=== PATIENT | male | born 1970 | race Caucasian/White ===

== ENCOUNTER 2016-11-12 20:09 | Emergency (ER) | payer MEDICAID ==
[~2016-11-12] VITALS: Ht 177.8 cm; Wt 88.5 kg
[2016-11-12 20:09] VITALS: BP_SYST 123
[~2016-11-12 20:09] MED LIST: AMOX-426 PO; HYDR-1189 PO; NOR10 PO; SACC250C3 PO; VIS50 PO; WELSR150 PO
[2016-11-12] MEDS ORDERED: ASPIRIN 325 MG TABLET PO ONE (20:15)
[2016-11-12 20:37] LABS: BASOPHILS # (AUTO) 0.2 K/uL (0.0-0.2); BASOPHILS % (AUTO) 1.6 % (0.0-2.0); EOSINOPHILS # (AUTO) 0.1 K/uL (0.0-0.4); EOSINOPHILS % (AUTO) 0.9 % (0.0-4.0); HEMATOCRIT 52.6 % (36-54); HEMOGLOBIN 17.3 g/dL (14.0-18.0); LYMPHOCYTES # (AUTO) 0.7 K/uL (1.0-5.5); LYMPHOCYTES % (AUTO) 5.9 % (20.5-51.5); MEAN CORPUSCULAR HEMOGLOBIN 28 pg (27-31); MEAN CORPUSCULAR HGB CONC 33 % (32-36); MEAN CORPUSCULAR VOLUME 85 fL (79.0-98.0); MONOCYTES % (AUTO) 8.3 % (1.7-9.3); NEUTROPHILS # (AUTO) 10.1 K/uL (1.8-7.7); NEUTROPHILS % (AUTO) 83.3 % (40.0-70.0); PLATELET COUNT (AUTO) 330 K/uL (130-430); RED CELL DISTRIBUTION WIDTH 13.2 % (9.0-15.0); WHITE BLOOD COUNT (AUTO) 12.1 K/uL (4.8-10.8)
[2016-11-12 20:41] LABS: CALCIUM 8.6 mg/dL (8.4-11.0); CREATININE 1.07 mg/dL (0.55-1.30); POTASSIUM 3.3 mmol/L (3.5-5.1)
[2016-11-12 20:43] LABS: INR 1.1 (0.80-1.20); PROTHROMBIN TIME 12.1 SECS (9.5-12.5)
[2016-11-12 20:45] LABS: ALBUMIN 3.8 g/dL (3.4-4.8); TOTAL BILIRUBIN 0.5 mg/dL (0.0-1.0); TOTAL PROTEIN, SERUM 7.7 g/dL (6.4-8.3)
[2016-11-12] MEDS ORDERED: NACL 0.9% 1,000 ML IV ONE (21:00)
[2016-11-12] MEDS ORDERED: ONDANSETRON HCL 4 MG/2 ML VIAL IVP ONE (21:00)
[2016-11-12 22:11] LABS: BILIRUBIN,URINE NEGATIVE (NEGATIVE); BLOOD, URINE NEGATIVE (NEGATIVE); CLARITY/URINE CLEAR (CLEAR); COLOR,URINE YELLOW (YELLOW); GLUCOSE,URINE NEGATIVE (NEGATIVE); KETONES,URINE NEGATIVE (NEGATIVE); LEUKOCYTE ESTERASE ,URINE NEGATIVE (NEGATIVE); NITRITE, URINE NEGATIVE (NEGATIVE); PROTEIN URINE NEGATIVE (NEGATIVE); UROBILINOGEN,URINE 0.2 (0.2-1.0)
[2016-11-12 22:12] VITALS: BP_SYST 123
[2016-11-12 22:32] LABS: BARBITURATE, URINE NEGATIVE (NEG <=200); BENZODIAZEPINE, URINE NEGATIVE (NEG <=150); CANNABINOID, URINE POSITIVE (NEG <=50); COCAINE, URINE NEGATIVE (NEG <=150); METHAMPHETAMINES SCREEN,URINE POSITIVE (NEG <=500); OPIATE, URINE NEGATIVE (NEG <=100); PHENCYCLIDINE SCREEN,URINE NEGATIVE (NEG <=25); UR TRICYCLIC ANTIDEPRESSANTS NEGATIVE (NEG <=300); URINE AMPHETAMINE POSITIVE (NEG <=500); URINE METHADONE NEGATIVE (NEG <=200); URINE OXYCODONE SCREEN NEGATIVE (NEG <=100); URINE PROPOXYPHENE SCREEN NEGATIVE (NEG <=300)
== END 2016-11-12 22:12 | disposition home or self-care (01) ==
LOC: SED 20:09
DX: E86.0 Dehydration (principal); D72.829 Elevated white blood cell count, unspecified; I10 Essential (primary) hypertension; Z86.19 Personal history of other infectious and parasitic diseases
CPT/HCPCS: 36415; 71010; 80053; 80307; 81003; 83735; 84484; 85025; 85610; 85730; 93005; 96374; 99285; J2405; J7030

== ENCOUNTER 2017-12-09 23:58 | Emergency (ER) | payer MEDICAID ==
[~2017-12-09] VITALS: Ht 177.8 cm; Wt 86.2 kg
[2017-12-10] VITALS: BP_SYST 148
--- NOTE | 2017-12-10 | NUR ---
Note blanka in ED - 12/10/17 at 0035 by HELEN Called Poison Control at [phone] and spoke with Per recommendations: Oral inspection, check for stridor, dysphagia, drooling consult GI if burn. Dr. Cornejo notified. Will continue to monitor patient.
--- NOTE | 2017-12-10 | NUR ---
Placed in room 2 . Placed on bus driver/monitor, blood pressure machine and pulse oximeter. To gown for exam. Side rails up. Report given to Brooks PATRICIO.
--- NOTE | 2017-12-10 00:05 | NUR ---
Patient ambulatory to ED a/o x 4 with c/o accidental ingestion of lens cleaner. Patient reports sore throat and head ache following ingestion. States, "I was able to spit most out, but i accidently swallowed some". No evidence of stridor or respiratory distress. Denies CP. -N/V. Patient denies SI or previous suicidal ideation. Will continue to monitor.
--- NOTE | 2017-12-10 00:10 | NUR ---
Called Poison Control at [phone] and spoke with Glen. Per recommendations: Oral inspection, check for stridor, dysphagia, drooling consult GI if burn. Dr. Cornejo notified. Will continue to monitor patient.
--- NOTE | 2017-12-10 00:17 | NUR ---
ED MD Cornejo at bedside for medical evaluation.
--- NOTE | 2017-12-10 01:00 | NUR ---
ED MD Shermanek at bedside reassessing patient.
[2017-12-10 01:09] VITALS: BP_SYST 141
--- NOTE | 2017-12-10 01:09 | NUR ---
Patient given written and verbal discharge instructions and verbalizes understanding. ER MD discussed with patient the results and treatment provided. Patient in stable condition. ID arm band removed. No Rx given. Patient educated on pain management and to follow up with PMD. Pain Scale 0/10. Opportunity for questions provided and answered.
== END 2017-12-10 01:09 | disposition home or self-care (01) ==
LOC: SED 23:58
DX: T55.0X1A Toxic effect of soaps, accidental (unintentional), initial encounter (principal); I10 Essential (primary) hypertension; F17.200 Nicotine dependence, unspecified, uncomplicated; Z88.8 Allergy status to other drugs, medicaments and biological substances; Z90.49 Acquired absence of other specified parts of digestive tract; Y92.89 Other specified places as the place of occurrence of the external cause
CPT/HCPCS: 99281

== ENCOUNTER 2018-04-11 06:19 | Emergency (ER) | payer MEDICAID ==
[~2018-04-11] VITALS: Ht 177.8 cm; Wt 86.2 kg
[2018-04-11 06:32] VITALS: BP_SYST 154
[2018-04-11] MEDS ORDERED: CEPHALEXIN 500 MG CAPSULE PO ONE (06:45)
[2018-04-11] MEDS ORDERED: SULFAMETHOXAZOLE/TRIMETHOPR DS 1 TABLET PO ONE (06:45)
[2018-04-11 07:05] VITALS: BP_SYST 154
== END 2018-04-11 07:05 | disposition home or self-care (01) ==
LOC: SED 06:19
DX: L03.116 Cellulitis of left lower limb (principal); I10 Essential (primary) hypertension; Z86.19 Personal history of other infectious and parasitic diseases; Z79.899 Other long term (current) drug therapy
CPT/HCPCS: 99283

== ENCOUNTER 2018-06-16 17:49 | Emergency (ER) | payer MEDICAID ==
[~2018-06-16] VITALS: Ht 177.8 cm; Wt 86.2 kg
[2018-06-16 17:51] VITALS: BP_SYST 123
[2018-06-16] MEDS ORDERED: CLINDAMYCIN PHOSPHATE 300 MG/2 ML VIAL IM ONE (19:00)
[2018-06-16 19:18] VITALS: BP_SYST 128
== END 2018-06-16 19:18 | disposition home or self-care (01) ==
LOC: SED 17:49
DX: L03.116 Cellulitis of left lower limb (principal); I10 Essential (primary) hypertension; Z86.19 Personal history of other infectious and parasitic diseases; Z79.899 Other long term (current) drug therapy
CPT/HCPCS: 93005; 96372; 99283; J3490

== ENCOUNTER 2018-06-29 05:05 | Emergency (ER) | payer MEDICAID ==
[~2018-06-29] VITALS: Ht 177.8 cm; Wt 86.2 kg
[2018-06-29 06:02] VITALS: BP_SYST 144
[2018-06-29 07:39] LABS: CALCIUM 9.2 mg/dL (8.4-11.0); CREATININE 0.85 mg/dL (0.55-1.30); POTASSIUM 3.3 mmol/L (3.5-5.1)
[2018-06-29 07:44] LABS: ALBUMIN 3.7 g/dL (3.4-4.8); TOTAL BILIRUBIN 0.2 mg/dL (0.0-1.0)
[2018-06-29 07:46] LABS: BASOPHILS # (AUTO) 0.1 K/uL (0.0-0.2); BASOPHILS % (AUTO) 1.1 % (0.0-2.0); EOSINOPHILS # (AUTO) 0.4 K/uL (0.0-0.4); EOSINOPHILS % (AUTO) 3.6 % (0.0-4.0); HEMOGLOBIN 15.5 g/dL (14.0-18.0); LYMPHOCYTES # (AUTO) 1.7 K/uL (1.0-5.5); LYMPHOCYTES % (AUTO) 15.2 % (20.5-51.5); MEAN CORPUSCULAR HEMOGLOBIN 28 pg (27-31); MEAN CORPUSCULAR HGB CONC 32 % (32-36); MEAN CORPUSCULAR VOLUME 88 fL (79.0-98.0); MONOCYTES # (AUTO) 0.7 K/uL (0.0-1.0); MONOCYTES % (AUTO) 6.1 % (1.7-9.3); PLATELET COUNT (AUTO) 433 K/uL (130-430); RED BLOOD CELL COUNT(AUTO) 5.47 MIL/uL (4.2-6.2); RED CELL DISTRIBUTION WIDTH 12.8 % (9.0-15.0); WHITE BLOOD COUNT (AUTO) 10.9 K/uL (4.8-10.8)
[2018-06-29] MEDS ORDERED: AMPICILLIN SODIUM/SULBACTAM NA 1.5 GM in NS 50 ML IV ONE (08:15)
[2018-06-29] MEDS ORDERED: KCL 40 mEq in 100 mL (PREMIX) 100 ML IV ONE (08:15)
[2018-06-29] MEDS ORDERED: AMPICILLIN SODIUM/SULBACTAM NA 1.5 GM VIAL ONE (08:21)
[2018-06-29] MEDS ORDERED: KCL 20 mEq in 100 mL (PREMIX) 100 ML IV ONE (08:24)
[2018-06-29] MEDS ORDERED: POTASSIUM CHLORIDE 20 MEQ TAB.PRT.SR PO ONE (08:45)
[2018-06-29 09:21] VITALS: BP_SYST 144
== END 2018-06-29 09:22 | disposition short-term general hospital (02) ==
LOC: SED 05:05
DX: L03.116 Cellulitis of left lower limb (principal); Z86.19 Personal history of other infectious and parasitic diseases; Z79.899 Other long term (current) drug therapy
CPT/HCPCS: 36415; 80053; 83605; 85025; 87040; 96365; 99285; J0295; J3480

== ENCOUNTER 2019-06-13 05:04 | Observation (INO) | payer MEDICAID ==
[~2019-06-13] VITALS: Ht 177.8 cm; Wt 88.5 kg
[2019-06-13 05:04] VITALS: BP_SYST 150
--- NOTE | 2019-06-13 05:04 | NUR ---
Placed in room 7 . Placed on building construction teacher, blood pressure machine and pulse oximeter. To gown for exam. Side rails up. Report given to SINTIA Sanford.
--- NOTE | 2019-06-13 05:05 | NUR ---
Patient is AAO x 4 and ambulatory c/o chest pain since 10pm last night. Pt states the pain is "a squeezing sensation, different when I have anxiety chest pain." Pain level of 6/10. Pt states he is short of breath and feels nauseous but has not vomited. O2 saturation of 98% on room air and speaking full sentences. Pt also states that he has been coughing for the last week, denies fever. No other injuries/complaints per patient or noted.
--- NOTE | 2019-06-13 05:08 | NUR ---
ER Dr. Rodriguez at bedside examining patient.
[2019-06-13] MEDS ORDERED: ONDANSETRON HCL 4 MG/2 ML VIAL IVP ONE (05:15)
[2019-06-13] MEDS ORDERED: MORPHINE 2 MG/ML INJ. SYRINGE IVP ONE (05:15)
[2019-06-13] MEDS ORDERED: NS 500 ML IV ONE (05:45)
[2019-06-13 05:57] LABS: BASOPHILS # (AUTO) 0.1 K/uL (0.0-0.2); BASOPHILS % (AUTO) 0.8 % (0.0-2.0); EOSINOPHILS # (AUTO) 0.3 K/uL (0.0-0.4); EOSINOPHILS % (AUTO) 2.9 % (0.0-4.0); HEMATOCRIT 50.3 % (36-54); HEMOGLOBIN 17.3 g/dL (14.0-18.0); LYMPHOCYTES # (AUTO) 1.6 K/uL (1.0-5.5); LYMPHOCYTES % (AUTO) 15.8 % (20.5-51.5); MEAN CORPUSCULAR HEMOGLOBIN 30 pg (27-31); MEAN CORPUSCULAR HGB CONC 35 % (32-36); MEAN CORPUSCULAR VOLUME 86 fL (79.0-98.0); MONOCYTES # (AUTO) 0.8 K/uL (0.0-1.0); MONOCYTES % (AUTO) 7.8 % (1.7-9.3); NEUTROPHILS # (AUTO) 7.4 K/uL (1.8-7.7); NEUTROPHILS % (AUTO) 72.7 % (40.0-70.0); PLATELET COUNT (AUTO) 367 K/uL (130-430); RED BLOOD CELL COUNT(AUTO) 5.86 MIL/uL (4.2-6.2); RED CELL DISTRIBUTION WIDTH 13.9 % (9.0-15.0); WHITE BLOOD COUNT (AUTO) 10.1 K/uL (4.8-10.8)
[2019-06-13 06:16] LABS: CALCIUM 8.8 mg/dL (8.4-11.0); CREATININE 0.82 mg/dL (0.55-1.30); POTASSIUM 3.7 mmol/L (3.5-5.1)
[2019-06-13 06:22] LABS: ALBUMIN 3.6 g/dL (3.4-4.8); TOTAL BILIRUBIN 0.3 mg/dL (0.0-1.0)
--- NOTE | 2019-06-13 07:15 | NUR ---
Report given to SINTIA Street. All care endorsed.
--- NOTE | 2019-06-13 07:16 | NUR ---
Report recieved from SINTIA Gupta for continuation of care.
--- NOTE | 2019-06-13 07:30 | NUR ---
Patient states he is ubale to provide urine sample at this time. Dr. Rodriguez is aware.
--- NOTE | 2019-06-13 07:40 | NUR ---
Verbal authorization received from [facility] to admit for observation.
[2019-06-13] MEDS ORDERED: NACL 0.9% 1,000 ML IV ONE (08:00)
[2019-06-13] MEDS ORDERED: cefTRIAXone 1 GM in D5W 50 ML IV ONE (08:15)
--- NOTE | 2019-06-13 08:15 | NUR ---
Medication reconciliation completed with information provided by patient. Any prior medication reconciliation on file was reviewed and corrected.
--- NOTE | 2019-06-13 08:16 | NUR ---
Patient will be admitted to care of Dr. Gutierrez. Admitted to [facility] Obs unit. Waiting for room assignment. Belongings list completed. Complete and up to date summary report printed. SBAR report to be given at bedside with opportunity for questions.
[2019-06-13] MEDS ORDERED: BUPR300T55 PO (08:22)
--- NOTE | 2019-06-13 08:40 | NUR ---
Transfer to [facility]. Licensed nurse present. IV present no signs or symptoms of infiltration. Addendum: 06/13/19 at 0845 by [email or web address] Minor endorsed to SINTIA Pete for continuation of care.
--- NOTE | 2019-06-13 08:42 | NUR ---
ADMISSION NOTE Received patient from ER via anish, received report from Jad PATRICIO. Patient admitted with diagnosis of Chest pain, Bronchitis. Patient oriented to hospital routine, call light, toileting and safety-patient verbalized understanding.
[2019-06-13] MEDS ORDERED: cefTRIAXone 1 GM VIAL ONE (08:44)
--- NOTE | 2019-06-13 08:59 | NUR ---
CONSULT ID BRONCHITIS DEVANTE CLARK [phone] S/W JUANCHO VARGAS
[2019-06-13 09:08] VITALS: BP_SYST 117
[2019-06-13] MEDS ORDERED: FLU VACC QS2019-20 36MOS UP/PF 60 MCG/0.5 ML SYRINGE I.M. PRN (09:30)
--- NOTE | 2019-06-13 10:30 | NUR ---
ASSUMPTION OF CARE: RECEIVED PT A/A/OX4, ENDORSED BY NURSE GIL LAWTON RN, PT IS RESTING, DX: ALTERATION IN COMFORT, R/T CHEST PAIN, BRONCHITIS, VSS, NO C/O PAIN AT THIS TIME, ORIENTED TO UNIT, CALL LIGHT PLACED WITHIN REACH, WILL CONT' TO MONITOR AND ASSESS.
--- NOTE | 2019-06-13 13:00 | NUR ---
NURSES NOTES: PT REMAINS STABLE, NO SIGNIFICANT CHANGES IN CONDITION NOTED, NEEDS MET, CALL LIGHT PLACED WITHIN REACH, WILL CONT' TO MONITOR AND ASSESS.
[2019-06-13] MEDS ORDERED: ONDANSETRON HCL 4 MG/2 ML VIAL IVP PRN (13:15)
[2019-06-13] MEDS ORDERED: LORazepam 2 MG/ML VIAL IVP PRN (13:15)
[2019-06-13] MEDS: LEVOFLOXACIN 500 MG/D5W 100 ML IV SCH (16:46)
[2019-06-13] MEDS: D5/0.45 NS 1,000 ML IV SCH ×2 (16:49→23:09)
--- NOTE | 2019-06-13 17:00 | NUR ---
NURSES NOTES: PT REMAINS STABLE, NO C/O CP, NO S/S OF DISTRESS, WILL CONT' TO MONITOR AND ASSESS.
[2019-06-13] MEDS: HYDROcodone/ACETAMIN 5-325 MG TAB (NORCO/ VICODIN) PO PRN (17:41)
--- NOTE | 2019-06-13 19:00 | NUR ---
END OF SHIFT: PT ASLEEP, CALL LIGHT WITHIN REACH, WILL ENDORSE TO DATA MODELER NURSE.
[2019-06-13] MEDS ORDERED: AMOXICILLIN/CLAVULANATE POTASSIUM 875 MG TABLET PO SCH (21:00)
[2019-06-13] MEDS: buPROPion HCL 150 MG TABLET.SA PO SCH (21:00)
[2019-06-13] MEDS ORDERED: buPROPion HCL 150 MG XL TAB PO SCH (21:00)
[2019-06-13] MEDS: LACTOBACILLUS RHAMNOSUS GG 1 CAP CAPSULE PO SCH (23:25)
--- NOTE | 2019-06-14 00:01 | NUR ---
pt recieved awake alert and oriented . no c/o pain . pt on d51/2ns tko . pt ambulates to the bathroom . vital sign stable . pt is doing very well .
--- NOTE | 2019-06-14 04:00 | NUR ---
pt slept very well . still sleeping very well . will continue to monitor pt for comfort.
[2019-06-14 06:37] LABS: CALCIUM 8.5 mg/dL (8.4-11.0); CREATININE 0.78 mg/dL (0.55-1.30); POTASSIUM 3.9 mmol/L (3.5-5.1)
[2019-06-14 06:38] LABS: BASOPHILS # (AUTO) 0.1 K/uL (0.0-0.2); BASOPHILS % (AUTO) 0.5 % (0.0-2.0); EOSINOPHILS # (AUTO) 0.3 K/uL (0.0-0.4); EOSINOPHILS % (AUTO) 3.2 % (0.0-4.0); HEMATOCRIT 47.8 % (36-54); HEMOGLOBIN 16.1 g/dL (14.0-18.0); LYMPHOCYTES # (AUTO) 1.7 K/uL (1.0-5.5); LYMPHOCYTES % (AUTO) 16.5 % (20.5-51.5); MEAN CORPUSCULAR HEMOGLOBIN 29 pg (27-31); MEAN CORPUSCULAR HGB CONC 34 % (32-36); MEAN CORPUSCULAR VOLUME 87 fL (79.0-98.0); MONOCYTES % (AUTO) 9.8 % (1.7-9.3); NEUTROPHILS # (AUTO) 7.4 K/uL (1.8-7.7); PLATELET COUNT (AUTO) 370 K/uL (130-430); RED BLOOD CELL COUNT(AUTO) 5.49 MIL/uL (4.2-6.2); WHITE BLOOD COUNT (AUTO) 10.5 K/uL (4.8-10.8)
[2019-06-14 08:00] VITALS: BP_SYST 139
--- NOTE | 2019-06-14 08:00 | NUR ---
ASSUMPTION OF CARE: RECEIVED PT A/A/OX4, PT IS RESTING, DX: ALTERATION IN COMFORT, R/T CHEST PAIN, BRONCHITIS, VSS, NO C/O PAIN AT THIS TIME, ORIENTED TO UNIT, CALL LIGHT PLACED WITHIN REACH, WILL CONT' TO MONITOR AND ASSESS.
--- NOTE | 2019-06-14 08:29 | NUR ---
PAGED PAGED BARBRA OCHOA AT [phone] SPOKE WITH LIANA.
[2019-06-14] MEDS ORDERED: amLODIPine BESYLATE 10 MG TABLET PO SCH (09:00)
--- NOTE | 2019-06-14 09:00 | NUR ---
CASHIER MANAGER: MORNING MEDS GIVEN, PER ORDERED BY Simba, TOLERATED WELL, WILL CONT' TO MONITOR AND ASSESS.
[2019-06-14] MEDS: LACTOBACILLUS RHAMNOSUS GG 1 CAP CAPSULE PO SCH (09:22)
[2019-06-14] MEDS: HYDROcodone/ACETAMIN 5-325 MG TAB (NORCO/ VICODIN) PO PRN ×2 (09:22→15:20)
[2019-06-14 10:07] LABS: ERYTHROCYTE SEDIMENTATION RATE 2 MM/HR (0-15)
[2019-06-14] MEDS: D5/0.45 NS 1,000 ML IV SCH (11:08)
[2019-06-14] MEDS: buPROPion HCL 150 MG TABLET.SA PO SCH (11:09)
[2019-06-14 12:00] VITALS: BP_SYST 120
--- NOTE | 2019-06-14 12:00 | NUR ---
NURSES NOTES: PT REMAINS STABLE, NO SIGNIFICANT CHANGES IN CONDITION NOTED, KEPT NPO FOR ORDERED US OF ABD, NEEDS MET, CALL LIGHT PLACED WITHIN REACH, WILL CONT' TO MONITOR AND ASSESS.
[2019-06-14 12:41] LABS: C-REACTIVE PROTEIN QUANT 0.4 mg/dL (0-0.5)
[2019-06-14] MEDS: LEVOFLOXACIN 500 MG/D5W 100 ML IV SCH (14:49)
--- NOTE | 2019-06-14 16:00 | NUR ---
RADIOLOGY: US ABD COMPLETED, PT REMAINS STABLE, TOLERATING WELL, WILL CONT' TO MONITOR AND ASSESS.
[2019-06-14] MEDS ORDERED: VIS50 PO (17:32)
[2019-06-14] MEDS ORDERED: LEVO500T89 PO (17:32)
[2019-06-14 18:07] VITALS: BP_SYST 120
--- NOTE | 2019-06-14 18:50 | NUR ---
DISCHARGE: PT HAS ORDER FOR DISCHARGE TO HOME, INSTRUCTIONS GIVEN WITH PRESCRIPTION AND DISCHARGE FOLLOW-UP CARE WITH PCP, VERBALIZES UNDERSTANDING AGREES TO ARRANGE NEXT APPT WITHIN 1 WEEK WITH PCP, IV DISCONTINUED, PRESSURE DRSG APPLIED TOLERATED WELL, FAMILY AT BEDSIDE TO TRANSPORT HOME, WILL ACCOMPANY TO PARKING LOT.
== END 2019-06-14 19:00 | disposition home or self-care (01) ==
LOC: SED 05:04 → SMU 08:14
PROVIDERS: ADMIT Preventive Medicine Preventive Medicine/Occupational Environmental Medicine; ATTEND Preventive Medicine Preventive Medicine/Occupational Environmental Medicine
DX: R07.89 Other chest pain (principal); R06.02 Shortness of breath; R11.0 Nausea; E87.2 Acidosis; R73.9 Hyperglycemia, unspecified; R05 Cough; R74.0 Nonspecific elevation of levels of transaminase and lactic acid dehydrogenase [LDH]; F15.10 Other stimulant abuse, uncomplicated; F41.9 Anxiety disorder, unspecified; F17.200 Nicotine dependence, unspecified, uncomplicated
CPT/HCPCS: 36415 ×2; 71045 ×2; 76700; 80048; 80053; 82550; 83605; 83880; 84484; 85025 ×2; 85379; 85651; 86140; 87040; 93005; 96365; 96366 ×2; 96367; 96375; 99285; G0378 ×2; J0696; J1956 ×2; J2270; J2405; J7030; J7060; 96361

== ENCOUNTER 2020-02-24 03:17 | Emergency (ER) | payer MEDICAID ==
[~2020-02-24] VITALS: Ht 177.8 cm; Wt 88.5 kg
[~2020-02-24 03:17] MED LIST changes: -AMOX-426 PO; +LEVO500T89 PO
[2020-02-24 03:30] VITALS: BP_SYST 145
--- NOTE | 2020-02-24 03:36 | NUR ---
Patient to ER bed 03 to gown for evaluation. Side rails up. Report given to SINTIA Kirk.
--- NOTE | 2020-02-24 03:37 | NUR ---
Pt brought in by self. Pt awake, alert, oriented x4. Pt ambulates with steady Gait. Pt states he has had 6/10 Bilateral Flank Pain x3 days. Pt Denies Nausea, vomiting, diarrhea. Pt states he also has had scant urine approx upon start of flank pain. Pt claims to have had unprotected sex approx 3 weeks ago and is also concerned about the possibility of STD's. Pt states that he took magnesium citrate and had 3 bowel movements since. Pt denies any chest pain, nausea, shortness of breath, any other medical complaint at this time. Pt resting in ED bed, no acute distress.
--- NOTE | 2020-02-24 03:38 | NUR ---
ER at bedside examining patient.
[2020-02-24] MEDS ORDERED: BUPR75TA8 (03:44)
[2020-02-24] MEDS ORDERED: BUPR300T55 PO (03:44)
--- NOTE | 2020-02-24 04:03 | NUR ---
patient unable to give urine sample at this time.
[2020-02-24 04:25] LABS: BASOPHILS # (AUTO) 0.1 K/uL (0.0-0.2); BASOPHILS % (AUTO) 0.9 % (0.0-2.0); EOSINOPHILS # (AUTO) 0.4 K/uL (0.0-0.4); EOSINOPHILS % (AUTO) 3.5 % (0.0-4.0); HEMATOCRIT 50.9 % (36-54); HEMOGLOBIN 16.5 g/dL (14.0-18.0); LYMPHOCYTES # (AUTO) 2.1 K/uL (1.0-5.5); MEAN CORPUSCULAR HEMOGLOBIN 28 pg (27-31); MEAN CORPUSCULAR HGB CONC 32 % (32-36); MEAN CORPUSCULAR VOLUME 88 fL (79.0-98.0); MONOCYTES # (AUTO) 0.9 K/uL (0.0-1.0); MONOCYTES % (AUTO) 8.1 % (1.7-9.3); NEUTROPHILS # (AUTO) 8.1 K/uL (1.8-7.7); NEUTROPHILS % (AUTO) 69.5 % (40.0-70.0); PLATELET COUNT (AUTO) 337 K/uL (130-430); RED CELL DISTRIBUTION WIDTH 14.3 % (9.0-15.0); WHITE BLOOD COUNT (AUTO) 11.6 K/uL (4.8-10.8)
[2020-02-24 04:28] LABS: CALCIUM 8.9 mg/dL (8.4-11.0); CREATININE 0.87 mg/dL (0.55-1.30); POTASSIUM 3.6 mmol/L (3.5-5.1)
[2020-02-24 04:33] LABS: ALBUMIN 3.4 g/dL (3.4-4.8); TOTAL BILIRUBIN 0.4 mg/dL (0.0-1.0)
[2020-02-24] MEDS ORDERED: AZITHROMYCIN 250 MG TABLET PO ONE (05:00)
[2020-02-24] MEDS ORDERED: cefTRIAXone 250 MG VIAL IM ONE (05:00)
[2020-02-24] MEDS ORDERED: PENICILLIN G BENZATHINE 1.2 MMU/2 ML SYR IM ONE (05:00)
--- NOTE | 2020-02-24 05:17 | NUR ---
medications adminstered per MD order. pt tolerated well.
--- NOTE | 2020-02-24 05:30 | NUR ---
patient refused to give urine sample. aware.
--- NOTE | 2020-02-24 05:48 | NUR ---
Patient given written and verbal discharge instructions and verbalizes understanding. ER MD discussed with patient the results and treatment provided. Patient in stable condition. ID arm band removed. NO Rx given. Patient educated on pain management and to follow up with PMD. Pain Scale 2/10. Opportunity for questions provided and answered. Medication side effect fact sheet provided.
[2020-02-24 05:49] VITALS: BP_SYST 139
== END 2020-02-24 05:48 | disposition home or self-care (01) ==
LOC: SED 03:17
DX: A57 Chancroid (principal); I10 Essential (primary) hypertension; R10.9 Unspecified abdominal pain; F15.90 Other stimulant use, unspecified, uncomplicated; Z72.89 Other problems related to lifestyle; Z86.19 Personal history of other infectious and parasitic diseases
CPT/HCPCS: 36415; 80053; 85025; 86592; 96372; 99284; J0561; J0696; Q0144

== ENCOUNTER 2020-03-04 22:14 | Emergency (ER) | payer MEDICAID ==
[~2020-03-04] VITALS: Ht 177.8 cm; Wt 90.7 kg
[~2020-03-04 22:14] MED LIST changes: +BUPR300T55 PO; -HYDR-1189 PO; -LEVO500T89 PO; -NOR10 PO; -SACC250C3 PO; -VIS50 PO; -WELSR150 PO
[2020-03-04 22:20] VITALS: BP_SYST 147
[2020-03-04 23:45] LABS: BILIRUBIN,URINE NEGATIVE (NEGATIVE); BLOOD, URINE NEGATIVE (NEGATIVE); CLARITY/URINE CLEAR (CLEAR); COLOR,URINE YELLOW (YELLOW); GLUCOSE,URINE NEGATIVE (NEGATIVE); KETONES,URINE NEGATIVE (NEGATIVE); LEUKOCYTE ESTERASE ,URINE NEGATIVE (NEGATIVE); NITRITE, URINE NEGATIVE (NEGATIVE); PROTEIN URINE NEGATIVE (NEGATIVE)
[2020-03-05] MEDS ORDERED: NACL 0.9% 1,000 ML IV ONE (01:08)
[2020-03-05 01:41] LABS: BASOPHILS # (AUTO) 0.1 K/uL (0.0-0.2); BASOPHILS % (AUTO) 0.6 % (0.0-2.0); EOSINOPHILS # (AUTO) 0.4 K/uL (0.0-0.4); EOSINOPHILS % (AUTO) 3.7 % (0.0-4.0); HEMOGLOBIN 14.5 g/dL (14.0-18.0); LYMPHOCYTES % (AUTO) 20.9 % (20.5-51.5); MEAN CORPUSCULAR HEMOGLOBIN 30 pg (27-31); MEAN CORPUSCULAR HGB CONC 34 % (32-36); MEAN CORPUSCULAR VOLUME 89 fL (79.0-98.0); MONOCYTES # (AUTO) 0.8 K/uL (0.0-1.0); MONOCYTES % (AUTO) 8.4 % (1.7-9.3); NEUTROPHILS # (AUTO) 6.4 K/uL (1.8-7.7); NEUTROPHILS % (AUTO) 66.4 % (40.0-70.0); PLATELET COUNT (AUTO) 320 K/uL (130-430); RED BLOOD CELL COUNT(AUTO) 4.86 MIL/uL (4.2-6.2); RED CELL DISTRIBUTION WIDTH 13.5 % (9.0-15.0); WHITE BLOOD COUNT (AUTO) 9.6 K/uL (4.8-10.8)
[2020-03-05 02:08] LABS: CALCIUM 8.4 mg/dL (8.4-11.0); POTASSIUM 3.4 mmol/L (3.5-5.1)
[2020-03-05 02:12] LABS: ALBUMIN 3.3 g/dL (3.4-4.8); TOTAL BILIRUBIN 0.3 mg/dL (0.0-1.0)
[2020-03-05 02:13] VITALS: BP_SYST 134
== END 2020-03-05 03:15 | disposition left against medical advice (07) ==
LOC: SED 22:14
DX: R30.0 Dysuria (principal); R10.9 Unspecified abdominal pain; I10 Essential (primary) hypertension; F41.9 Anxiety disorder, unspecified; F17.200 Nicotine dependence, unspecified, uncomplicated
CPT/HCPCS: 36415; 80053; 81003; 85025; 96360; 99283; J7030

== ENCOUNTER 2021-05-24 00:03 | Emergency (ER) | payer MEDICAID ==
[~2021-05-24] VITALS: Ht 177.8 cm; Wt 90.7 kg
[2021-05-24 00:17] VITALS: BP_SYST 147
--- NOTE | 2021-05-24 01:50 | NUR ---
Patient to ER bed 5 to gown for evaluation. Side rails up. Report given to self.
[2021-05-24] MEDS ORDERED: IBUP-1969 PO (03:20)
--- NOTE | 2021-05-24 03:39 | NUR ---
Patient given written and verbal discharge instructions and verbalizes understanding. ER MD discussed with patient the results and treatment provided. Patient in stable condition. ID arm band removed. Rx of ibuprofen given. Patient educated on pain management and to follow up with PMD. Pain Scale 3. Opportunity for questions provided and answered. Medication side effect fact sheet provided.
[2021-05-24 03:40] VITALS: BP_SYST 139
== END 2021-05-24 03:40 | disposition home or self-care (01) ==
LOC: SED 00:03
DX: S00.432A Contusion of left ear, initial encounter (principal); S00.412A Abrasion of left ear, initial encounter; M75.22 Bicipital tendinitis, left shoulder; Z79.899 Other long term (current) drug therapy; W22.8XXA Striking against or struck by other objects, initial encounter; Y93.89 Activity, other specified; Y92.89 Other specified places as the place of occurrence of the external cause; Y99.8 Other external cause status
CPT/HCPCS: 73030; 99283

== ENCOUNTER 2021-11-05 19:54 | Emergency (ER) | payer MEDICAID ==
[~2021-11-05] VITALS: Ht 177.8 cm; Wt 92.5 kg
[~2021-11-05 19:54] MED LIST changes: +IBUP-1969 PO
[2021-11-05 19:57] VITALS: BP_SYST 149
--- NOTE | 2021-11-05 20:06 | NUR ---
51 YR OLD AOX4, AMBULATORY WITH COMPLAINT OF RIGHT PINKY SPIDER BITE ABOUT 1 HOUR AGO. PT REPORT ITCHY SWELLING OF TONGUE. PT SUSPECTS IT MAY BE A BLACK SPIDER, AND REPORTS RIGHT ARM NUMBNESS, JOINT STIFFNESS AND TINGLING SENSATION OF RIGHT ARM.
[2021-11-05] MEDS ORDERED: MORPHINE 4 MG INJ. 4 MG/ML VIAL IVP ONE (20:45)
[2021-11-05] MEDS ORDERED: ONDANSETRON HCL 4 MG/2 ML VIAL IVP ONE (20:45)
[2021-11-05] MEDS ORDERED: CALCIUM CHLORIDE 1 GM/10 ML DISP.SYRIN (14 mEq Ca++/SYR) IVP ONE (20:45)
--- NOTE | 2021-11-05 20:50 | NUR ---
IV START AT [facility] G20 INSERTED WITH GOOD BLOOD RETURN, IV MEDS GIVEN MORPHINE 4 MG, ZOFRAN 4 MG AND CACL IVP SLOWLY.
[2021-11-05] MEDS ORDERED: IBUP-1971 PO (21:29)
[2021-11-05] MEDS ORDERED: HYDR-3917 PO (21:29)
[2021-11-05 22:39] VITALS: BP_SYST 145
--- NOTE | 2021-11-05 22:43 | NUR ---
Patient given written and verbal discharge instructions and verbalizes understanding. PIO RODRIGUEZ MD discussed with patient the results and treatment provided. Patient in stable condition. ID arm band removed. IV catheter removed intact and dressing applied, no active bleeding. Rx of given. Patient educated on pain management and to follow up with PMD. Pain Scale . Opportunity for questions provided and answered. Medication side effect fact sheet provided.
--- NOTE | 2021-11-05 22:43 | NUR ---
2353 S/B DR RODRIGUEZ AWAITING FOR D/C
== END 2021-11-05 22:39 | disposition home or self-care (01) ==
LOC: SED 19:54
DX: T63.311A Toxic effect of venom of black widow spider, accidental (unintentional), initial encounter (principal); I10 Essential (primary) hypertension; Z79.899 Other long term (current) drug therapy; Y92.89 Other specified places as the place of occurrence of the external cause
CPT/HCPCS: 96374; 96375; 99285; J2270; J2405

== ENCOUNTER 2022-01-22 02:10 | Emergency (ER) | payer MEDICAID ==
[~2022-01-22] VITALS: Ht 177.8 cm; Wt 97.5 kg
[~2022-01-22 02:10] MED LIST changes: +HYDR-3917 PO; +IBUP-1971 PO
[2022-01-22 02:14] VITALS: BP_SYST 130
--- NOTE | 2022-01-22 02:19 | NUR ---
PATIENT C/O CHEST PAIN, LEFT ARM PAIN, SOB, AND JAW PAIN X 3 HOURS
[2022-01-22 03:40] LABS: BASOPHILS # (AUTO) 0.1 K/uL (0.0-0.2); BASOPHILS % (AUTO) 0.5 % (0.0-2.0); EOSINOPHILS # (AUTO) 0.5 K/uL (0.0-0.4); EOSINOPHILS % (AUTO) 4.4 % (0.0-4.0); HEMATOCRIT 42.8 % (36-54); HEMOGLOBIN 14.6 g/dL (14.0-18.0); LYMPHOCYTES # (AUTO) 2.6 K/uL (1.0-5.5); LYMPHOCYTES % (AUTO) 24.6 % (20.5-51.5); MEAN CORPUSCULAR HEMOGLOBIN 29 pg (27-31); MEAN CORPUSCULAR HGB CONC 34 % (32-36); MEAN CORPUSCULAR VOLUME 85 fL (79.0-98.0); MONOCYTES # (AUTO) 0.9 K/uL (0.0-1.0); MONOCYTES % (AUTO) 8.9 % (1.7-9.3); NEUTROPHILS # (AUTO) 6.6 K/uL (1.8-7.7); NEUTROPHILS % (AUTO) 61.6 % (40.0-70.0); PLATELET COUNT (AUTO) 310 K/uL (130-430); RED BLOOD CELL COUNT(AUTO) 5.03 MIL/uL (4.2-6.2); RED CELL DISTRIBUTION WIDTH 13.7 % (9.0-15.0); WHITE BLOOD COUNT (AUTO) 10.6 K/uL (4.8-10.8)
[2022-01-22 03:44] LABS: ANION GAP 6 (5-15); CALCIUM 8.9 mg/dL (8.4-11.0); CHLORIDE 103 mmol/L (98-107); CREATININE 1.02 mg/dL (0.55-1.30); GLUCOSE 135 mg/dL (70-99); POTASSIUM 3.8 mmol/L (3.5-5.1); SODIUM SERUM 139 mmol/L (136-145); UREA NITROGEN, BLOOD 19 mg/dL (8-21)
[2022-01-22 03:55] LABS: ALANINE AMINOTRANSFERASE 99 U/L (12-78); ALBUMIN 3.5 g/dL (3.4-4.8); ASPARTATE AMINOTRANSFERASE 84 U/L (10-37); TOTAL BILIRUBIN 0.5 mg/dL (0.0-1.0)
[2022-01-22 04:02] LABS: GFR AFRICAN AMERICAN 98 mL/min (>90)
--- NOTE | 2022-01-22 04:45 | NUR ---
CALLED TO ROOM, NO ANSWER
--- NOTE | 2022-01-22 05:00 | NUR ---
CALLED TO ROOM PATIENT, NO ANSWER
--- NOTE | 2022-01-22 05:16 | NUR ---
THIRD CALL, NO RESPONSE. PATIENT LEFT WITHOUT BEING SEEN.
== END 2022-01-22 05:16 | disposition left against medical advice (07) ==
LOC: SED 02:10
DX: R07.9 Chest pain, unspecified (principal); M79.602 Pain in left arm; R06.02 Shortness of breath; Z53.21 Procedure and treatment not carried out due to patient leaving prior to being seen by health care provider
CPT/HCPCS: 36415; 71045; 80053; 83880; 84484; 85025; 93005; 99285

== ENCOUNTER 2022-03-30 21:58 | Emergency (ER) | payer MEDICAID ==
[~2022-03-30] VITALS: Ht 177.8 cm; Wt 95.3 kg
[2022-03-30 21:58] VITALS: BP_SYST 154
--- NOTE | 2022-03-30 21:58 | NUR ---
Patient to ER tent for evaluation.
--- NOTE | 2022-03-30 22:02 | NUR ---
Patient brought in accompanied by significant other complaining of cough x7 days. Patient also reports that he has something growing in the back of his throat. Patient has history of GERD. No shortness of breath noted. Patient speaking full sentences. Patient denies any pain at this time.
--- NOTE | 2022-03-30 22:10 | NUR ---
ER at bedside examining patient.
[2022-03-30] MEDS ORDERED: DOXY100C5 PO ×3 (22:31→23:03)
--- NOTE | 2022-03-30 23:02 | NUR ---
Patient given written and verbal discharge instructions and verbalizes understanding. ER MD discussed with patient the results and treatment provided. Patient in stable condition. ID arm band removed. Rx of doxycline given. Patient educated on pain management and to follow up with PMD. Pain Scale 0/10 Opportunity for questions provided and answered. Medication side effect fact sheet provided.
[2022-03-30 23:07] VITALS: BP_SYST 132
== END 2022-03-30 23:07 | disposition home or self-care (01) ==
LOC: SED 21:58
DX: R05.9 Cough, unspecified (principal); R07.9 Chest pain, unspecified; F17.210 Nicotine dependence, cigarettes, uncomplicated; Z79.899 Other long term (current) drug therapy; Z20.822 Contact with and (suspected) exposure to COVID-19
CPT/HCPCS: 36415; 99283

== ENCOUNTER 2022-08-02 03:03 | Emergency (ER) | payer MEDICAID ==
[~2022-08-02] VITALS: Ht 177.8 cm; Wt 95.3 kg
[~2022-08-02 03:03] MED LIST changes: +DOXY100C5 PO
[2022-08-02 03:20] VITALS: BP_SYST 143
[2022-08-02 04:46] LABS: BASOPHILS # (AUTO) 0.1 K/uL (0.0-0.2); BASOPHILS % (AUTO) 0.6 % (0.0-2.0); EOSINOPHILS # (AUTO) 0.2 K/uL (0.0-0.4); EOSINOPHILS % (AUTO) 2.3 % (0.0-4.0); HEMATOCRIT 46.6 % (36-54); HEMOGLOBIN 15.7 g/dL (14.0-18.0); LYMPHOCYTES # (AUTO) 2.2 K/uL (1.0-5.5); LYMPHOCYTES % (AUTO) 21.5 % (20.5-51.5); MEAN CORPUSCULAR HEMOGLOBIN 29 pg (27-31); MEAN CORPUSCULAR HGB CONC 34 % (32-36); MEAN CORPUSCULAR VOLUME 86 fL (79.0-98.0); MONOCYTES # (AUTO) 0.9 K/uL (0.0-1.0); MONOCYTES % (AUTO) 8.7 % (1.7-9.3); NEUTROPHILS # (AUTO) 6.7 K/uL (1.8-7.7); NEUTROPHILS % (AUTO) 66.9 % (40.0-70.0); PLATELET COUNT (AUTO) 332 K/uL (130-430); RED BLOOD CELL COUNT(AUTO) 5.45 MIL/uL (4.2-6.2); RED CELL DISTRIBUTION WIDTH 13.9 % (9.0-15.0)
[2022-08-02 04:57] LABS: CALCIUM 9.1 mg/dL (8.4-11.0); CREATININE 0.86 mg/dL (0.55-1.30)
[2022-08-02 05:03] LABS: ALBUMIN 3.5 g/dL (3.4-4.8); TOTAL BILIRUBIN 0.4 mg/dL (0.0-1.0)
[2022-08-02 05:04] LABS: PROTHROMBIN TIME 10.5 SECS (9.5-12.5)
[2022-08-02] MEDS ORDERED: LOPE2CAP PO (05:19)
[2022-08-02] MEDS ORDERED: SIME80TA15 PO (05:19)
[2022-08-02] MEDS ORDERED: ONDA-8 TL (05:20)
[2022-08-02 05:43] VITALS: BP_SYST 143
== END 2022-08-02 05:43 | disposition home or self-care (01) ==
LOC: SED 03:03
DX: R14.0 Abdominal distension (gaseous) (principal); K76.0 Fatty (change of) liver, not elsewhere classified; R19.5 Other fecal abnormalities; R91.1 Solitary pulmonary nodule; I10 Essential (primary) hypertension; R11.0 Nausea; F15.10 Other stimulant abuse, uncomplicated; Z87.891 Personal history of nicotine dependence; Z79.899 Other long term (current) drug therapy; Z20.822 Contact with and (suspected) exposure to COVID-19
CPT/HCPCS: 36415; 76376; 80053; 82140; 83605; 83690; 85025; 85610-TC; 85730-TC; 87040; 99284

== ENCOUNTER 2022-08-05 14:01 | Emergency (ER) | payer MEDICAID ==
[~2022-08-05] VITALS: Ht 177.8 cm; Wt 95.3 kg
[~2022-08-05 14:01] MED LIST changes: +LOPE2CAP PO; +ONDA-8 TL; +SIME80TA15 PO
--- NOTE | 2022-08-05 14:20 | NUR ---
Ricardo moscoso in ED - 08/05/22 at 1452 by [email or web address] PIO DEUTSCH AT BEDSIDE EXAMINING PT.
[2022-08-05 14:22] VITALS: BP_SYST 136
--- NOTE | 2022-08-05 14:28 | NUR ---
Placed in room 04 . Placed on residential monitor, blood pressure machine and pulse oximeter. To gown for exam. Side rails up. Report given to SINTIA PEDERSEN.
--- NOTE | 2022-08-05 14:30 | NUR ---
PIO DEUTSCH AT BEDSIDE EXAMINING PT.
--- NOTE | 2022-08-05 14:33 | NUR ---
PT BIB SELF FROM HOME WITH C/O FLU LIKE SYMPTOMS AND URGENCY. PT STATES HE WAS DIAGNOSED WITH DIVERTICULITIS ONE WEEK AGO AND HAS HAD FLU LIKE SYMPTOMS WELL. PT IS CURRENTLY COUGHING UP DARK GREEN/YELLOW MUCUS. PT IS AAX04, VS STABLE, NAD NOTED, BREATHING EVEN AND UNLABORED ON RA, PT DENIES N/V/D, PT ON PROMOTIONS EXECUTIVE SHOW NSR. PENDING MD HAMILTON AND ORDERS.
[2022-08-05 15:14] LABS: BASOPHILS # (AUTO) 0.1 K/uL (0.0-0.2); BASOPHILS % (AUTO) 0.4 % (0.0-2.0); EOSINOPHILS # (AUTO) 0.3 K/uL (0.0-0.4); EOSINOPHILS % (AUTO) 1.7 % (0.0-4.0); HEMOGLOBIN 14.8 g/dL (14.0-18.0); LYMPHOCYTES # (AUTO) 1.2 K/uL (1.0-5.5); LYMPHOCYTES % (AUTO) 7.6 % (20.5-51.5); MEAN CORPUSCULAR HEMOGLOBIN 28 pg (27-31); MEAN CORPUSCULAR HGB CONC 33 % (32-36); MEAN CORPUSCULAR VOLUME 86 fL (79.0-98.0); MONOCYTES # (AUTO) 1.2 K/uL (0.0-1.0); MONOCYTES % (AUTO) 7.9 % (1.7-9.3); NEUTROPHILS % (AUTO) 82.4 % (40.0-70.0); PLATELET COUNT (AUTO) 342 K/uL (130-430); RED BLOOD CELL COUNT(AUTO) 5.22 MIL/uL (4.2-6.2); WHITE BLOOD COUNT (AUTO) 15.7 K/uL (4.8-10.8)
[2022-08-05 15:19] LABS: ANION GAP 8 (5-15); CALCIUM 8.7 mg/dL (8.4-11.0); CHLORIDE 102 mmol/L (98-107); CREATININE 0.84 mg/dL (0.55-1.30); GLUCOSE 162 mg/dL (70-99); UREA NITROGEN, BLOOD 12 mg/dL (8-21)
[2022-08-05 15:23] LABS: ALANINE AMINOTRANSFERASE 38 U/L (12-78); ALBUMIN 3.3 g/dL (3.4-4.8); AMYLASE 31 U/L (0-100); ASPARTATE AMINOTRANSFERASE 20 U/L (10-37); C-REACTIVE PROTEIN QUANT 7.3 mg/dL (0-0.5); GFR AFRICAN AMERICAN 122 mL/min (>90); LACTATE DEHYDROGENASE 146 U/L (85-227); LIPASE 60 U/L (73-393)
[2022-08-05 15:38] LABS: ACETONE, SERUM NEGATIVE (NEGATIVE)
[2022-08-05] MEDS ORDERED: HYDR-3917 PO (17:43)
[2022-08-05] MEDS ORDERED: IBUP-1971 PO (17:43)
[2022-08-05 18:35] VITALS: BP_SYST 140
--- NOTE | 2022-08-05 18:35 | NUR ---
PT MEDICALLY CLEARED FOR D/C. D/C INSTRUCTIONS GIVEN TO PT. P;T TO FOLLOWUOP WITH PCP WITHIN 1-3 DAYS AND TO RETURN TO ED FOR WROSENING S/S. PT VERBALIZED UNDERSTANDING. PT IS AAOX4. NAD, WRISTBAND REMOVED. PT AMBULATORY WITH STEADY GATE. PT LEFT ED WITH ALL BELONGINGS.
== END 2022-08-05 18:45 | disposition home or self-care (01) ==
LOC: SED 14:01
DX: R10.32 Left lower quadrant pain (principal); M79.674 Pain in right toe(s); R05.9 Cough, unspecified; I10 Essential (primary) hypertension; Z79.899 Other long term (current) drug therapy
CPT/HCPCS: 99285; 74177; 71045; 80053; 82009; 82150; 83615; 83690; 85025; 86140; 36415; 76376; 83605; Q9967

== ENCOUNTER 2022-08-11 11:17 | Emergency (ER) | payer MEDICAID ==
[~2022-08-11] VITALS: Ht 177.8 cm; Wt 95.3 kg
[2022-08-11 11:30] VITALS: BP_SYST 158
[2022-08-11] MEDS ORDERED: MAG HYDROX/AL HYDROX/SIMETH 30 ML, DICYCLOMINE HCL 20 MG, LIDOCAINE VISCOUS 2% 15ML (PO... PO ONE ×3 (12:00)
[2022-08-11 12:26] LABS: BASOPHILS # (AUTO) 0.1 K/uL (0.0-0.2); BASOPHILS % (AUTO) 0.7 % (0.0-2.0); EOSINOPHILS # (AUTO) 0.3 K/uL (0.0-0.4); EOSINOPHILS % (AUTO) 3.7 % (0.0-4.0); HEMATOCRIT 46.8 % (36-54); HEMOGLOBIN 15.4 g/dL (14.0-18.0); LYMPHOCYTES % (AUTO) 21.3 % (20.5-51.5); MEAN CORPUSCULAR HEMOGLOBIN 28 pg (27-31); MEAN CORPUSCULAR HGB CONC 33 % (32-36); MEAN CORPUSCULAR VOLUME 85 fL (79.0-98.0); MONOCYTES # (AUTO) 0.8 K/uL (0.0-1.0); NEUTROPHILS # (AUTO) 6.1 K/uL (1.8-7.7); NEUTROPHILS % (AUTO) 65.3 % (40.0-70.0); PLATELET COUNT (AUTO) 390 K/uL (130-430); RED BLOOD CELL COUNT(AUTO) 5.51 MIL/uL (4.2-6.2); RED CELL DISTRIBUTION WIDTH 13.7 % (9.0-15.0); WHITE BLOOD COUNT (AUTO) 9.3 K/uL (4.8-10.8)
[2022-08-11 12:35] LABS: ANION GAP 14 (5-15); CALCIUM 9.2 mg/dL (8.4-11.0); CHLORIDE 101 mmol/L (98-107); CREATININE 0.92 mg/dL (0.55-1.30); GFR AFRICAN AMERICAN 110 mL/min (>90); GLUCOSE 112 mg/dL (70-99); UREA NITROGEN, BLOOD 21 mg/dL (8-21)
[2022-08-11 12:42] LABS: ALANINE AMINOTRANSFERASE 42 U/L (12-78); ALBUMIN 3.8 g/dL (3.4-4.8); ASPARTATE AMINOTRANSFERASE 29 U/L (10-37); LIPASE 85 U/L (73-393); TOTAL BILIRUBIN 0.9 mg/dL (0.0-1.0)
[2022-08-11] MEDS ORDERED: OMEP40CA20 PO (13:32)
[2022-08-11] MEDS ORDERED: ONDA8TAB60 PO (13:32)
[2022-08-11 13:47] VITALS: BP_SYST 149
== END 2022-08-11 13:54 | disposition home or self-care (01) ==
LOC: SED 11:17
DX: R10.13 Epigastric pain (principal); R11.0 Nausea; R07.9 Chest pain, unspecified; I10 Essential (primary) hypertension; F15.10 Other stimulant abuse, uncomplicated; Z79.899 Other long term (current) drug therapy
CPT/HCPCS: 99285; 74176; 80053; 83690; 85025; 84484; 36415; 93005; 76376; J2001

== ENCOUNTER 2023-04-01 04:44 | Inpatient (IN) | payer MEDICAID ==
[~2023-04-01] VITALS: Ht 177.8 cm; Wt 95.3 kg
[~2023-04-01 04:44] MED LIST changes: +OMEP40CA20 PO; +ONDA8TAB60 PO
[2023-04-01 04:56] VITALS: BP_SYST 148; PULSE 84; RESP 18; TEMP 98.3; O2SAT 97
[2023-04-01] MEDS ORDERED: ASPIRIN 325 MG TABLET PO ONE (05:30)
[2023-04-01] MEDS ORDERED: ASPIRIN 81 MG TABLET(ECOTRIN) PO ONE (05:45)
[2023-04-01 05:49] LABS: BASOPHILS # (AUTO) 0.1 K/uL (0.0-0.2); BASOPHILS % (AUTO) 0.6 % (0.0-2.0); EOSINOPHILS # (AUTO) 0.3 K/uL (0.0-0.4); EOSINOPHILS % (AUTO) 2.1 % (0.0-4.0); HEMATOCRIT 44.5 % (36-54); HEMOGLOBIN 14.4 g/dL (14.0-18.0); LYMPHOCYTES # (AUTO) 2.2 K/uL (1.0-5.5); LYMPHOCYTES % (AUTO) 18.2 % (20.5-51.5); MEAN CORPUSCULAR HEMOGLOBIN 27 pg (27-31); MEAN CORPUSCULAR HGB CONC 32 % (32-36); MEAN CORPUSCULAR VOLUME 85 fL (79.0-98.0); MONOCYTES % (AUTO) 8.1 % (1.7-9.3); NEUTROPHILS # (AUTO) 8.6 K/uL (1.8-7.7); PLATELET COUNT (AUTO) 330 K/uL (130-430); RED BLOOD CELL COUNT(AUTO) 5.25 MIL/uL (4.2-6.2); RED CELL DISTRIBUTION WIDTH 14.1 % (9.0-15.0); WHITE BLOOD COUNT (AUTO) 12.2 K/uL (4.8-10.8)
[2023-04-01 06:05] LABS: ANION GAP 8 (5-15); CALCIUM 8.2 mg/dL (8.4-11.0); CARBON DIOXIDE 25 mmol/L (23-29); CHLORIDE 103 mmol/L (98-107); CREATININE 0.71 mg/dL (0.55-1.30); GFR AFRICAN AMERICAN 149 mL/min (>90); GLUCOSE 128 mg/dL (74-106); POTASSIUM 3.2 mmol/L (3.5-5.1); SODIUM SERUM 136 mmol/L (136-145); UREA NITROGEN, BLOOD 14 mg/dL (8-21)
[2023-04-01 06:08] LABS: GFR NON AFRICAN-AMERICAN 123 mL/min (>90)
[2023-04-01 06:12] LABS: ALANINE AMINOTRANSFERASE 45 U/L (12-78); ALBUMIN 3.5 g/dL (3.4-4.8); ASPARTATE AMINOTRANSFERASE 37 U/L (10-37); LIPASE 93 U/L (73-393); TOTAL BILIRUBIN 0.3 mg/dL (0.0-1.0); TOTAL PROTEIN, SERUM 6.8 g/dL (6.4-8.3)
[2023-04-01] MEDS ORDERED: POTASSIUM CHLORIDE 20 MEQ TAB.PRT.SR PO ONE (06:30)
[2023-04-01] MEDS ORDERED: NITROGLYCERIN 1 INCH (GM) OINT. TP ONE (06:30)
[2023-04-01] MEDS ORDERED: ATENOLOL 50 MG TABLET (TENORMIN) PO ONE (07:15)
[2023-04-01] MEDS ORDERED: POTASSIUM CHLORIDE 20 MEQ TAB.PRT.SR PO PRN (08:30)
[2023-04-01] MEDS ORDERED: ONDANSETRON HCL 4 MG/2 ML VIAL IVP PRN (08:30)
[2023-04-01] MEDS ORDERED: NACL 0.9% 1,000 ML IV SCH (08:30)
[2023-04-01] MEDS ORDERED: MUPIROCIN 2% TOPICAL OINTMENT 22 GM NS PRN (08:30)
[2023-04-01] MEDS ORDERED: ZOLPIDEM TARTRATE 5 MG TABLET PO PRN (08:30)
[2023-04-01] MEDS ORDERED: ACETAMINOPHEN 325 MG TABLET PO PRN ×2 (08:30→09:15)
[2023-04-01] MEDS ORDERED: DEXTROSE 50% JECT 50 ML DISP.SYRIN IVP PRN (08:30)
[2023-04-01] MEDS ORDERED: MAGNESIUM SULFATE 50 ML IV PRN (08:30)
[2023-04-01] MEDS ORDERED: LORazepam 2 MG/ML VIAL IVP PRN (08:30)
[2023-04-01] MEDS ORDERED: DOCUSATE SODIUM 100 MG CAPSULE PO PRN (08:30)
[2023-04-01] MEDS ORDERED: INSULIN LISPRO SLIDING SCALE 100 UNITS/ML, 3 ML VIAL (humaLOG) SUBCUT PRN (08:30)
[2023-04-01] MEDS ORDERED: METOPROLOL TARTRATE 25 MG TABLET PO SCH (09:00)
[2023-04-01] MEDS ORDERED: HEPARIN SODIUM,PORCINE 5,000 UNITS/ML VIAL SUBCUT SCH (09:00)
[2023-04-01] MEDS ORDERED: ASPIRIN 81 MG TABLET(ECOTRIN) PO SCH (09:00)
[2023-04-01 09:18] LABS: BARBITURATE, URINE NEGATIVE (NEG <=200)
[2023-04-01 09:19] LABS: BENZODIAZEPINE, URINE NEGATIVE (NEG <=150); CANNABINOID, URINE NEGATIVE (NEG <=50); COCAINE, URINE NEGATIVE (NEG <=150); METHAMPHETAMINES SCREEN,URINE POSITIVE (NEG <=500); OPIATE, URINE NEGATIVE (NEG <=100); PHENCYCLIDINE SCREEN,URINE NEGATIVE (NEG <=25); URINE AMPHETAMINE POSITIVE (NEG <=500); URINE METHADONE NEGATIVE (NEG <=200); URINE OXYCODONE SCREEN NEGATIVE (NEG <=100); URINE PROPOXYPHENE SCREEN NEGATIVE (NEG <=300)
[2023-04-01 09:20] LABS: UR TRICYCLIC ANTIDEPRESSANTS NEGATIVE (NEG <=300)
[2023-04-01 11:46] VITALS: BP_SYST 150; PULSE 69; RESP 18; TEMP 97.9; O2SAT 96
[2023-04-01 13:13] VITALS: BP_SYST 150; PULSE 69; RESP 18; TEMP 97.9; O2SAT 96
[2023-04-01 16:00] VITALS: BP_SYST 140; PULSE 66; RESP 18; TEMP 97.1; O2SAT 96
[2023-04-01] MEDS ORDERED: buPROPion HCL 150 MG XL TAB PO SCH (21:00)
== END 2023-04-01 17:45 | disposition left against medical advice (07) | DRG 198 ==
LOC: SED 04:44 → STU 08:22
PROVIDERS: ADMIT General Practice; ATTEND General Practice
DX: I25.10 Atherosclerotic heart disease of native coronary artery without angina pectoris (principal); E11.9 Type 2 diabetes mellitus without complications; E78.5 Hyperlipidemia, unspecified; F10.10 Alcohol abuse, uncomplicated; I10 Essential (primary) hypertension; F17.210 Nicotine dependence, cigarettes, uncomplicated; F32.A Depression, unspecified; F14.10 Cocaine abuse, uncomplicated; Y90.9 Presence of alcohol in blood, level not specified; F15.10 Other stimulant abuse, uncomplicated; F12.10 Cannabis abuse, uncomplicated; Z53.29 Procedure and treatment not carried out because of patient's decision for other reasons; Z91.199 Patient's noncompliance with other medical treatment and regimen due to unspecified reason; Z81.8 Family history of other mental and behavioral disorders; Z63.4 Disappearance and death of family member
CPT/HCPCS: 36415; 71045; 80053; 80307; 82962; 83037; 83690; 83880; 84484; 85025; 93005; 99285; G0378; J1644; J7030

== ENCOUNTER 2023-06-23 05:56 | Inpatient (IN) | payer MEDICAID ==
[~2023-06-23] VITALS: Ht 177.8 cm; Wt 96.6 kg
[2023-06-23 06:05] VITALS: BP_SYST 156; PULSE 96; RESP 22; TEMP 96.1; O2SAT 98
[2023-06-23] MEDS ORDERED: ASPIRIN 81 MG TAB.CHEW PO ONE (06:30)
[2023-06-23 06:43] LABS: BASOPHILS # (AUTO) 0.1 K/uL (0.0-0.2); BASOPHILS % (AUTO) 0.5 % (0.0-2.0); EOSINOPHILS # (AUTO) 0.4 K/uL (0.0-0.4); EOSINOPHILS % (AUTO) 2.6 % (0.0-4.0); HEMATOCRIT 44.5 % (36-54); HEMOGLOBIN 14.4 g/dL (14.0-18.0); LYMPHOCYTES # (AUTO) 2.3 K/uL (1.0-5.5); LYMPHOCYTES % (AUTO) 16.4 % (20.5-51.5); MEAN CORPUSCULAR HEMOGLOBIN 27 pg (27-31); MEAN CORPUSCULAR HGB CONC 32 % (32-36); MEAN CORPUSCULAR VOLUME 84 fL (79.0-98.0); MONOCYTES # (AUTO) 1.1 K/uL (0.0-1.0); MONOCYTES % (AUTO) 7.7 % (1.7-9.3); NEUTROPHILS # (AUTO) 10.2 K/uL (1.8-7.7); NEUTROPHILS % (AUTO) 72.8 % (40.0-70.0); PLATELET COUNT (AUTO) 372 K/uL (130-430); RED CELL DISTRIBUTION WIDTH 13.9 % (9.0-15.0)
[2023-06-23 06:50] LABS: ANION GAP 10 (5-15); CALCIUM 8.9 mg/dL (8.4-11.0); CARBON DIOXIDE 26 mmol/L (23-29); CHLORIDE 104 mmol/L (98-107); CREATININE 0.88 mg/dL (0.55-1.30); GFR AFRICAN AMERICAN 116 mL/min (>90); GFR NON AFRICAN-AMERICAN 96 mL/min (>90); GLUCOSE 127 mg/dL (74-106); POTASSIUM 3.4 mmol/L (3.5-5.1); SODIUM SERUM 140 mmol/L (136-145); UREA NITROGEN, BLOOD 17 mg/dL (8-21)
[2023-06-23] MEDS ORDERED: MAG-AL HYDROX/SIMETH 30 ML UDC PO ONE (07:00)
[2023-06-23] MEDS ORDERED: HYDROcodone/ACETAMIN 5-325 MG TAB (NORCO/ VICODIN) PO PRN ×2 (15:15→15:45)
[2023-06-23] MEDS ORDERED: LORazepam 2 MG/ML VIAL IVP PRN (15:15)
[2023-06-23] MEDS ORDERED: ACETAMINOPHEN 325 MG TABLET PO PRN ×2 (15:15→15:45)
[2023-06-23] MEDS ORDERED: NALOXONE HCL 0.4 MG/ML AMP (NARCAN) IVP PRN ×2 (15:15)
[2023-06-23] MEDS ORDERED: ONDANSETRON HCL 4 MG/2 ML VIAL IVP PRN (15:15)
[2023-06-23 20:51] VITALS: BP_SYST 136; PULSE 68; RESP 18; TEMP 98.6; O2SAT 97
[2023-06-23] MEDS: NORMAL SALINE 5 ML DISP.SYRIN IVF SCH (21:27)
[2023-06-23 21:40] VITALS: BP_SYST 136; PULSE 68; RESP 20; TEMP 98.6; O2SAT 97
[2023-06-24 05:35] LABS: BASOPHILS # (AUTO) 0.1 K/uL (0.0-0.2); BASOPHILS % (AUTO) 0.7 % (0.0-2.0); EOSINOPHILS # (AUTO) 0.4 K/uL (0.0-0.4); EOSINOPHILS % (AUTO) 3.8 % (0.0-4.0); HEMATOCRIT 44.3 % (36-54); HEMOGLOBIN 14.5 g/dL (14.0-18.0); LYMPHOCYTES % (AUTO) 19.4 % (20.5-51.5); MEAN CORPUSCULAR HEMOGLOBIN 28 pg (27-31); MEAN CORPUSCULAR HGB CONC 33 % (32-36); MEAN CORPUSCULAR VOLUME 85 fL (79.0-98.0); MONOCYTES # (AUTO) 0.9 K/uL (0.0-1.0); MONOCYTES % (AUTO) 8.9 % (1.7-9.3); NEUTROPHILS # (AUTO) 7.1 K/uL (1.8-7.7); NEUTROPHILS % (AUTO) 67.2 % (40.0-70.0); PLATELET COUNT (AUTO) 361 K/uL (130-430); RED BLOOD CELL COUNT(AUTO) 5.25 MIL/uL (4.2-6.2); RED CELL DISTRIBUTION WIDTH 14.1 % (9.0-15.0); WHITE BLOOD COUNT (AUTO) 10.5 K/uL (4.8-10.8)
[2023-06-24 06:33] LABS: ALBUMIN 3.1 g/dL (3.4-4.8); CALCIUM 8.8 mg/dL (8.4-11.0); CREATININE 0.72 mg/dL (0.55-1.30); POTASSIUM 3.9 mmol/L (3.5-5.1); TOTAL BILIRUBIN 0.2 mg/dL (0.0-1.0); TOTAL PROTEIN, SERUM 6.6 g/dL (6.4-8.3)
[2023-06-24 08:00] VITALS: BP_SYST 149; PULSE 68; RESP 16; TEMP 98; O2SAT 96
[2023-06-24] MEDS ORDERED: ASPIRIN 81 MG TAB.CHEW PO SCH (09:00)
[2023-06-24] MEDS ORDERED: METOPROLOL SUCCINATE 25 MG TAB.SR.24H (TOPROL XL) PO SCH (09:00)
[2023-06-24] MEDS: NORMAL SALINE 5 ML DISP.SYRIN IVF SCH (09:25)
[2023-06-24 10:45] VITALS: O2SAT 96
[2023-06-24] MEDS ORDERED: ISOSORBIDE MONONITRATE 30 MG TAB.ER.24H PO ONE (12:30)
[2023-06-24 14:13] VITALS: BP_SYST 116; PULSE 54; RESP 18; TEMP 97.4; O2SAT 97
[2023-06-25] MEDS ORDERED: ISOSORBIDE MONONITRATE 30 MG TAB.ER.24H PO SCH (09:00)
== END 2023-06-24 14:41 | disposition home or self-care (01) | DRG 198 ==
LOC: SED 05:56 → STU 12:09
PROVIDERS: ADMIT Preventive Medicine Preventive Medicine/Occupational Environmental Medicine; ATTEND Specialist
DX: R07.89 Other chest pain (principal); I25.10 Atherosclerotic heart disease of native coronary artery without angina pectoris; R65.11 Systemic inflammatory response syndrome (SIRS) of non-infectious origin with acute organ dysfunction; B19.20 Unspecified viral hepatitis C without hepatic coma; E78.5 Hyperlipidemia, unspecified; G89.4 Chronic pain syndrome; F10.90 Alcohol use, unspecified, uncomplicated; F15.10 Other stimulant abuse, uncomplicated; K21.9 Gastro-esophageal reflux disease without esophagitis; Y90.9 Presence of alcohol in blood, level not specified; I10 Essential (primary) hypertension; Z87.891 Personal history of nicotine dependence; Z79.899 Other long term (current) drug therapy; Z79.82 Long term (current) use of aspirin; Z63.4 Disappearance and death of family member; Z79.1 Long term (current) use of non-steroidal anti-inflammatories (NSAID); Z63.5 Disruption of family by separation and divorce
CPT/HCPCS: 36415; 71045; 80048; 80053; 83880; 84484; 85025; 93005; 93306; 96374; 99285; G0378; J2405

== ENCOUNTER 2023-10-30 20:26 | Emergency (ER) | payer MEDICAID ==
[~2023-10-30] VITALS: Ht 177.8 cm; Wt 95.3 kg
[2023-10-30 20:43] VITALS: BP_SYST 143; PULSE 83; RESP 20; TEMP 97.3; O2SAT 95
[2023-10-30] MEDS ORDERED: SULF1TAB48 PO (21:15)
[2023-10-30 21:45] VITALS: BP_SYST 143; PULSE 83; RESP 20; TEMP 97.3; O2SAT 95
== END 2023-10-30 21:45 | disposition home or self-care (01) ==
LOC: SED 20:26
DX: L03.031 Cellulitis of right toe (principal); I10 Essential (primary) hypertension; Z79.899 Other long term (current) drug therapy
CPT/HCPCS: 99283

== ENCOUNTER 2023-11-04 05:37 | Emergency (ER) | payer MEDICAID ==
[~2023-11-04] VITALS: Ht 177.8 cm; Wt 95.3 kg
[~2023-11-04 05:37] MED LIST changes: -BUPR300T55 PO; -DOXY100C5 PO; -HYDR-3917 PO; -IBUP-1969 PO; -IBUP-1971 PO; -LOPE2CAP PO; -OMEP40CA20 PO; -ONDA-8 TL; -ONDA8TAB60 PO; -SIME80TA15 PO; +SULF1TAB48 PO
[2023-11-04 05:55] VITALS: BP_SYST 153; PULSE 94; RESP 18; TEMP 98.6
[2023-11-04] MEDS ORDERED: GUAI5LIQ13 PO (06:31)
[2023-11-04] MEDS ORDERED: ACET-2634 PO (06:31)
[2023-11-04] MEDS ORDERED: P-EP-92 PO (06:31)
[2023-11-04] MEDS ORDERED: AZIT-93 PO (06:31)
== END 2023-11-04 06:42 | disposition home or self-care (01) ==
LOC: SED 05:37
DX: J18.9 Pneumonia, unspecified organism (principal); R05.9 Cough, unspecified; R51.9 Headache, unspecified; R50.9 Fever, unspecified; I10 Essential (primary) hypertension; Z79.899 Other long term (current) drug therapy; Z20.822 Contact with and (suspected) exposure to COVID-19
CPT/HCPCS: 36415; 71045; 99284

== ENCOUNTER 2023-11-18 01:42 | Emergency (ER) | payer MEDICAID ==
[~2023-11-18] VITALS: Ht 177.8 cm; Wt 95.3 kg
[~2023-11-18 01:42] MED LIST changes: +ACET-2634 PO; +AZIT-93 PO; +GUAI5LIQ13 PO; +P-EP-92 PO
[2023-11-18 01:45] VITALS: BP_SYST 131; PULSE 99; RESP 20; TEMP 97.6; O2SAT 97
[2023-11-18] MEDS ORDERED: ALBMDI INH (02:24)
[2023-11-18 02:30] VITALS: BP_SYST 128; PULSE 94; RESP 20; TEMP 97.8; O2SAT 98
== END 2023-11-18 02:30 | disposition home or self-care (01) ==
LOC: SED 01:42
DX: J06.9 Acute upper respiratory infection, unspecified (principal); B97.89 Other viral agents as the cause of diseases classified elsewhere; R09.89 Other specified symptoms and signs involving the circulatory and respiratory systems; I10 Essential (primary) hypertension; Z79.899 Other long term (current) drug therapy; Z79.2 Long term (current) use of antibiotics
CPT/HCPCS: 71045; 93005; 99283

== ENCOUNTER 2024-03-06 02:00 | Inpatient (IN) | payer MEDICAID ==
[~2024-03-06] VITALS: Ht 177.8 cm; Wt 77.6 kg
[~2024-03-06 02:00] MED LIST changes: +ALBMDI INH
[2024-03-06 02:10] VITALS: BP_SYST 128; PULSE 89; RESP 18; TEMP 97.7; O2SAT 98
[2024-03-06] MEDS: NACL 0.9% 1,000 ML IV ONE (02:58)
[2024-03-06] MEDS: INSULIN REGULAR, HUMAN 10 UNITS/0.1 ML, 3 ML VIAL IVP ONE (03:59)
[2024-03-06 04:11] LABS: BASOPHILS % (AUTO) 0.4 % (0.0-2.0); EOSINOPHILS # (AUTO) 0.2 K/uL (0.0-0.4); EOSINOPHILS % (AUTO) 1.6 % (0.0-4.0); HEMATOCRIT 54.8 % (36-54); HEMOGLOBIN 17.9 g/dL (14.0-18.0); LYMPHOCYTES # (AUTO) 1.4 K/uL (1.0-5.5); LYMPHOCYTES % (AUTO) 13.5 % (20.5-51.5); MEAN CORPUSCULAR HEMOGLOBIN 29 pg (27-31); MEAN CORPUSCULAR HGB CONC 33 % (32-36); MEAN CORPUSCULAR VOLUME 90 fL (79.0-98.0); MONOCYTES # (AUTO) 0.7 K/uL (0.0-1.0); MONOCYTES % (AUTO) 6.9 % (1.7-9.3); NEUTROPHILS # (AUTO) 8.2 K/uL (1.8-7.7); NEUTROPHILS % (AUTO) 77.6 % (40.0-70.0); PLATELET COUNT (AUTO) 337 K/uL (130-430); RED BLOOD CELL COUNT(AUTO) 6.12 MIL/uL (4.2-6.2); WHITE BLOOD COUNT (AUTO) 10.5 K/uL (4.8-10.8)
[2024-03-06 04:20] LABS: ALANINE AMINOTRANSFERASE 31 U/L (12-78); ALBUMIN 3.6 g/dL (3.4-4.8); ANION GAP 16 (5-15); ASPARTATE AMINOTRANSFERASE 23 U/L (10-37); BILIRUBIN,DIRECT 0.1 mg/dL (0.0-0.3); CALCIUM 9.2 mg/dL (8.4-11.0); CARBON DIOXIDE 22 mmol/L (23-29); CHLORIDE 94 mmol/L (98-107); CREATININE 0.77 mg/dL (0.55-1.30); GFR AFRICAN AMERICAN 135 mL/min (>90); POTASSIUM 3.9 mmol/L (3.5-5.1); SODIUM SERUM 132 mmol/L (136-145); TOTAL BILIRUBIN 0.3 mg/dL (0.0-1.0); TOTAL PROTEIN, SERUM 7.3 g/dL (6.4-8.3); UREA NITROGEN, BLOOD 15 mg/dL (8-21)
[2024-03-06 04:24] LABS: GFR NON AFRICAN-AMERICAN 111 mL/min (>90); GLUCOSE 532 mg/dL (74-106)
[2024-03-06 04:47] LABS: BILIRUBIN,URINE NEGATIVE (NEGATIVE); BLOOD, URINE NEGATIVE (NEGATIVE); CLARITY/URINE CLEAR (CLEAR); COLOR,URINE YELLOW (YELLOW); GLUCOSE,URINE 3+ (NEGATIVE); KETONES,URINE 2+ (NEGATIVE); LEUKOCYTE ESTERASE ,URINE NEGATIVE (NEGATIVE); NITRITE, URINE NEGATIVE (NEGATIVE); PROTEIN URINE NEGATIVE (NEGATIVE); UROBILINOGEN,URINE 0.2 (0.2-1.0)
[2024-03-06 04:50] LABS: BLOOD GAS BASE EXCESS -2.7 mmol/L (-3.0-3.0); BLOOD GAS HCO3 20.6 mmol/L (21.0-27.0); BLOOD GAS PCO2 32.5 mmHg (32.0-45.0)
[2024-03-06 04:51] LABS: ABG O2 SAT% ESTIMATE 96.5 % (94.0-100.0); ALLEN'S TEST POSITIVE (P)
[2024-03-06 05:14] LABS: BACTERIA,URINE RARE /HPF (None Seen); RBC,URINE 0-3 /HPF (0-3); WBC,URINE 0-3 /HPF (0-3)
[2024-03-06 05:17] LABS: URINE AMPHETAMINE POSITIVE (NEG <=500)
[2024-03-06 05:18] LABS: BENZODIAZEPINE, URINE NEGATIVE (NEG <=150); CANNABINOID, URINE NEGATIVE (NEG <=50); COCAINE, URINE NEGATIVE (NEG <=150); METHAMPHETAMINES SCREEN,URINE POSITIVE (NEG <=500); OPIATE, URINE NEGATIVE (NEG <=100); PHENCYCLIDINE SCREEN,URINE NEGATIVE (NEG <=25); UR TRICYCLIC ANTIDEPRESSANTS NEGATIVE (NEG <=300); URINE METHADONE NEGATIVE (NEG <=200); URINE OXYCODONE SCREEN NEGATIVE (NEG <=100)
[2024-03-06 05:19] LABS: BARBITURATE, URINE NEGATIVE (NEG <=200)
[2024-03-06] MEDS ORDERED: INSULIN REGULAR, HUMAN 100 UNITS/ML, 3 ML VIAL (humuLIN R) SUBCUT PRN (06:30)
[2024-03-06] MEDS ORDERED: D5W 1,000 ML IV PRN (06:45)
[2024-03-06] MEDS ORDERED: DEXTROSE 50%-WATER 50 ML DISP.SYRIN IVP PRN (06:45)
[2024-03-06] MEDS ORDERED: GLUCOSE (DEXTROSE) ORAL GEL -Adults PO PRN (06:45)
[2024-03-06] MEDS ORDERED: HYDROcodone/ACETAMIN 10-325 MG TAB PO PRN (09:45)
[2024-03-06] MEDS ORDERED: NALOXONE HCL 0.4 MG/ML AMP (NARCAN) IVP PRN ×2 (09:45)
[2024-03-06] MEDS ORDERED: ACETAMINOPHEN 325 MG TABLET PO PRN (09:45)
[2024-03-06] MEDS ORDERED: LORazepam 2 MG/ML VIAL IVP PRN (09:45)
[2024-03-06] MEDS ORDERED: guaiFENesin/DEXTROMETHORPHAN 118 ML PO PRN (09:45)
[2024-03-06] MEDS ORDERED: ALBUTEROL MDI INHALATION 8 GM INH INH PRN (09:45)
[2024-03-06] MEDS ORDERED: ONDANSETRON HCL 4 MG/2 ML VIAL IVP PRN (09:45)
[2024-03-06] MEDS ORDERED: HYDROcodone/ACETAMIN 5-325 MG TAB (NORCO/ VICODIN) PO PRN (09:45)
[2024-03-06] MEDS ORDERED: P-EPHED SUL/LORATADINE 1 EACH TAB.SR.12H PO PRN (09:45)
[2024-03-06 09:53] VITALS: BP_SYST 143; PULSE 76; RESP 17; TEMP 97.5; O2SAT 96
[2024-03-06] MEDS ORDERED: ALBUTEROL SULFATE 0.083% 2.5 MG/3 ML VIAL.NEB INH PRN ×2 (10:30→10:42)
[2024-03-06] MEDS ORDERED: guaiFENesin/DEXTROMETHORPHAN 10 ML UDC PO PRN (10:30)
[2024-03-06] MEDS: PIOGLITAZONE HCL 15 MG TABLET PO ONE (11:35)
[2024-03-06] MEDS: metFORMIN HCL 500 MG TABLET PO ONE (11:36)
[2024-03-06] MEDS: AZITHROMYCIN 250 MG TABLET PO ONE (11:36)
[2024-03-06 11:44] VITALS: BP_SYST 143; PULSE 76; RESP 17; TEMP 97.5; O2SAT 96
[2024-03-06] MEDS: NORMAL SALINE 5 ML DISP.SYRIN IVF SCH (14:36)
[2024-03-06] MEDS: metFORMIN HCL 500 MG TABLET PO SCH (17:03)
[2024-03-06 18:06] VITALS: BP_SYST 142; PULSE 63; RESP 20; TEMP 98.1; O2SAT 96
[2024-03-06 20:00] VITALS: O2SAT 96
[2024-03-06] MEDS: SULFAMETHOXAZOLE/TRIMETHOPR DS 1 TABLET PO SCH (22:18)
[2024-03-07] VITALS (8 sets, daily range): BP systolic 113–141; PULSE 61–100; RESP 16–18; TEMP 96.9–98.6; O2SAT 95–98
[2024-03-07 07:51] LABS: BASOPHILS % (AUTO) 0.5 % (0.0-2.0); EOSINOPHILS # (AUTO) 0.2 K/uL (0.0-0.4); EOSINOPHILS % (AUTO) 2.1 % (0.0-4.0); HEMATOCRIT 53.8 % (36-54); HEMOGLOBIN 17.8 g/dL (14.0-18.0); LYMPHOCYTES # (AUTO) 2.3 K/uL (1.0-5.5); LYMPHOCYTES % (AUTO) 24.7 % (20.5-51.5); MEAN CORPUSCULAR HEMOGLOBIN 29 pg (27-31); MEAN CORPUSCULAR HGB CONC 33 % (32-36); MEAN CORPUSCULAR VOLUME 87 fL (79.0-98.0); MONOCYTES # (AUTO) 0.7 K/uL (0.0-1.0); MONOCYTES % (AUTO) 7.9 % (1.7-9.3); NEUTROPHILS % (AUTO) 64.8 % (40.0-70.0); PLATELET COUNT (AUTO) 330 K/uL (130-430); RED CELL DISTRIBUTION WIDTH 13.7 % (9.0-15.0); WHITE BLOOD COUNT (AUTO) 9.2 K/uL (4.8-10.8)
[2024-03-07 08:05] LABS: CALCIUM 8.7 mg/dL (8.4-11.0); CREATININE 0.56 mg/dL (0.55-1.30); POTASSIUM 3.6 mmol/L (3.5-5.1)
[2024-03-07] MEDS: AZITHROMYCIN 250 MG TABLET PO SCH (08:47)
[2024-03-07] MEDS: PIOGLITAZONE HCL 15 MG TABLET PO SCH (08:47)
[2024-03-07] MEDS: THIAMINE HCL 100 MG TABLET PO SCH (08:47)
[2024-03-07] MEDS: MULTIVITAMINS TAB 1 TABLET PO SCH (08:47)
[2024-03-07] MEDS: FOLIC ACID 1 MG TABLET PO SCH (08:48)
[2024-03-07] MEDS: INSULIN REGULAR, HUMAN 100 UNITS/ML, 3 ML VIAL (humuLIN R) SUBCUT PRN (11:46)
[2024-03-08 00:18] VITALS: BP_SYST 116; PULSE 79; RESP 16; TEMP 97; O2SAT 98
[2024-03-08 08:05] VITALS: BP_SYST 118; PULSE 96; RESP 18; TEMP 96.9; O2SAT 98
[2024-03-08 08:08] LABS: CALCIUM 8.8 mg/dL (8.4-11.0); CREATININE 0.64 mg/dL (0.55-1.30); POTASSIUM 3.7 mmol/L (3.5-5.1)
[2024-03-08 08:18] LABS: BASOPHILS % (AUTO) 0.3 % (0.0-2.0); EOSINOPHILS # (AUTO) 0.2 K/uL (0.0-0.4); EOSINOPHILS % (AUTO) 1.9 % (0.0-4.0); HEMATOCRIT 51.2 % (36-54); HEMOGLOBIN 17.1 g/dL (14.0-18.0); LYMPHOCYTES # (AUTO) 2.3 K/uL (1.0-5.5); MEAN CORPUSCULAR HEMOGLOBIN 29 pg (27-31); MEAN CORPUSCULAR HGB CONC 33 % (32-36); MEAN CORPUSCULAR VOLUME 87 fL (79.0-98.0); MONOCYTES # (AUTO) 0.9 K/uL (0.0-1.0); MONOCYTES % (AUTO) 8.1 % (1.7-9.3); NEUTROPHILS # (AUTO) 7.4 K/uL (1.8-7.7); NEUTROPHILS % (AUTO) 68.7 % (40.0-70.0); PLATELET COUNT (AUTO) 300 K/uL (130-430); RED BLOOD CELL COUNT(AUTO) 5.88 MIL/uL (4.2-6.2); RED CELL DISTRIBUTION WIDTH 13.4 % (9.0-15.0); WHITE BLOOD COUNT (AUTO) 10.7 K/uL (4.8-10.8)
[2024-03-08 10:02] VITALS: O2SAT 98
[2024-03-08 11:04] VITALS: BP_SYST 140; PULSE 56; RESP 16; TEMP 97.8; O2SAT 96
[2024-03-08] MEDS ORDERED: FOLI-43 PO (11:50)
[2024-03-08] MEDS ORDERED: THIA100T70 PO (11:50)
[2024-03-08] MEDS ORDERED: METF-379 PO (11:50)
[2024-03-08] MEDS ORDERED: PIOG15TA8 PO (11:50)
[2024-03-08] MEDS ORDERED: MULT400T13 PO (11:50)
[2024-03-08 12:18] VITALS: BP_SYST 122; PULSE 56; RESP 16; TEMP 97.8; O2SAT 97
[2024-03-08 15:17] VITALS: BP_SYST 123; PULSE 59; RESP 16; TEMP 97.5; O2SAT 96
[2024-03-09] MEDS ORDERED: glipiZIDE XL 5 MG TAB ( GLUCOTROL XL) PO SCH (09:00)
== END 2024-03-08 16:35 | disposition home or self-care (01) | DRG 420 ==
LOC: SED 02:00 → SMU 06:20
PROVIDERS: ADMIT Preventive Medicine Preventive Medicine/Occupational Environmental Medicine; ATTEND Preventive Medicine Preventive Medicine/Occupational Environmental Medicine
DX: E11.65 Type 2 diabetes mellitus with hyperglycemia (principal); D75.1 Secondary polycythemia; E86.0 Dehydration; F15.90 Other stimulant use, unspecified, uncomplicated; K59.00 Constipation, unspecified; I25.10 Atherosclerotic heart disease of native coronary artery without angina pectoris; I10 Essential (primary) hypertension; Z83.3 Family history of diabetes mellitus; Z79.84 Long term (current) use of oral hypoglycemic drugs; Z79.899 Other long term (current) drug therapy; Z88.8 Allergy status to other drugs, medicaments and biological substances; F17.200 Nicotine dependence, unspecified, uncomplicated
CPT/HCPCS: 36415; 36600; 71045; 80048; 80076; 80307; 81000; 81001; 81015; 82009; 82803; 82948; 84484; 85025; 93005; 93306; 94070; 94760; 96361; 96374; 99285; J1815; Q0144